=== PATIENT | male | born 1980 | race Caucasian/White ===

== ENCOUNTER 2016-12-01 16:14 | Emergency (ER) | payer SELFPAY ==
[~2016-12-01] VITALS: Ht 172.7 cm; Wt 75.0 kg
[~2016-12-01 16:14] MED LIST: PHEN100 PO
[2016-12-01 16:16] VITALS: BP 135/92; PULSE 109; RESP 12; TEMP 97.8; O2SAT 99
[2016-12-01 19:19] VITALS: BP 127/62; PULSE 85; RESP 16; TEMP 98.1; O2SAT 99
== END 2016-12-01 19:40 | disposition left against medical advice (07) ==
LOC: NED 16:14
DX: Z53.21 Procedure and treatment not carried out due to patient leaving prior to being seen by health care provider (principal)
CPT/HCPCS: 99281

== ENCOUNTER 2017-09-12 21:51 | Emergency (ER) | payer SELFPAY ==
[~2017-09-12] VITALS: Ht 172.7 cm; Wt 68.2 kg
[2017-09-12 21:54] VITALS: BP 172/80; PULSE 121; RESP 16; TEMP 98.4; O2SAT 98
[2017-09-12] MEDS ORDERED: DILA100C PO (22:04)
[2017-09-12] MEDS ORDERED: DICL75TA PO (22:13)
--- NOTE | 2017-09-12 22:17 | PD ---
HPI Chief Complaint: Injury Time Seen by Provider: 22:07 Travel History International Travel<30 days: No Contact w/Intl Traveler<30days: No Traveled to known affect area: No History of Present Illness HPI 37-year-old white male presents to emergency Department with complaints of left foot and ankle pain 2 days. He states that yesterday he noticed some mild discomfort in his forefoot. He does note that he went for a very long bicycle ride and had a lot of walking yesterday which may have precipitated the event. He denies any direct trauma. No history of prior injury. He states the pain now is severe today and is unable to walk. He denies any sensory changes. Exacerbated by walking or riding a bike. No alleviating factors. PFSH Past Medical History Narrative Medical Seizure disorder Cardiovascular Problems: Yes (MURMUR) Medical other: Yes (SEIZURES ) Tetanus Vaccination: > 5 Years Influenza Vaccination: No Past Surgical History Surgical History: No Previous Surgery Social History Alcohol Use: Yes (OCC) Tobacco Use: Yes (10/25 PPD) Substance Use: Yes (MJ) Allergies-Medications (Allergen,Severity, Reaction): Coded Allergies: ketorolac (Verified Allergy, Severe, 09/12/17) HIVES; N/V tramadol (Verified Allergy, Severe, 09/12/17) HIVES N/V penicillin G (Verified Allergy, Unknown, 09/12/17) Reported Meds & Prescriptions Reported Meds & Active Scripts Active Diclofenac Sodium DR (Diclofenac Sodium) 75 Mg Tabdr 75 Mg PO BID Dilantin 100 Mg Kapseals (Phenytoin Sodium) 100 Mg Caper 100 Mg PO TID 30 Days Reported Dilantin (Phenytoin Extended) 100 Mg Cap 100 Mg PO TID Review of Systems Except as stated in HPI: all other systems reviewed are Neg Physical Exam Narrative GENERAL: This is a well-nourished, well-developed patient, in no apparent distress. SKIN: No rashes, ecchymoses or lesions. Warm and dry. HEAD: Atraumatic. Normocephalic. EYES: PERRL, EOMI, no discharge or injection. No scleral icterus. EARS: Clear NOSE: Nasal turbinates appear normal. THROAT: Mucosa pink and moist. Airway patent. NECK: Trachea midline. supple, moves head freely. LUNGS: Clear to auscultation. CV: Regular in rhythm. ABDOMEN: Soft nontender. EXT: No clubbing cyanosis or edema. Examination of the left foot reveals tenderness in the proximal forefoot up into the ankle. There is no bony tenderness in the ankle. No pain in the heel or Achilles. He complains of pain with light palpation of the talar fibular talar tibial ligaments. He has intact sensation with good distal pulses. Minimal swelling. The skin is intact. No pain in the distal forefoot or toes. No pain in the heel, Achilles , knee or hip. Remaining extremities are unremarkable. Data Data Last Documented VS Vital Signs Date Time Temp Pulse Resp B/P (MAP) Pulse Ox O2 Delivery O2 Flow Rate FiO2 09/12/17 21:54 98.4 121 16 172/80 (110) 98 Orders Orders Foot, Complete ([id number]) (09/12/17 22:12) Ice/Cold Pack (09/12/17 22:12) Splint Or Brace Apply/Monitor (09/12/17 22:12) Crutches (09/12/17 22:12) Naproxen (Naprosyn) (09/12/17 22:30) Ed Discharge Order (09/12/17 22:33) MDM Medical Decision Making Medical Screen Exam Complete: Yes Emergency Medical Condition: Yes Medical Record Reviewed: Yes Interpretation(s) Left foot: Negative for acute bony injury. Differential Diagnosis MDM: High Differential diagnoses: Fracture, sprain, strain, dislocation, contusion, neurovascular injury Narrative Course X-rays of left foot are negative or bony injury. Patient's given Chaka wrap and crutches. Icepack applied. Diclofenac for pain. Patient's given Naprosyn 500 mg by mouth here. Patient states that he is allergic to Toradol and tramadol. But he can take Tylenol and ibuprofen. Diagnosis Primary Impression: Tendinitis of left foot Patient Instructions: General Instructions Additional Instructions: Rest. Elevation. Ice packs for the next 3 days. Chaka wrap and crutches. No weight-bearing and then progress to weight-bearing as tolerated. Medications as directed Follow-up with an orthopedist, banquet manager for a family doctor in one week. Return to the ER if any problems Med/Other Pt SpecificInfo: Prescription(s) given Scripts Diclofenac Sodium (Diclofenac Sodium DR) 75 Mg Tabdr 75 MG PO BID, #20 TAB 0 Refills Prov: Vinny Morelos MD 09/12/17 Disposition: 01 DISCHARGE HOME Condition: Stable Alfonso Herr Sep 12, 2017 22:17
[2017-09-12] MEDS ORDERED: NAPROXEN 500 MG TAB PO ONE (22:30)
--- NOTE | 2017-09-12 22:57 | RADRPT ---
EXAM DATE/TIME: 09/12/2017 22:19 [facility] COMPARISON: No previous studies available for comparison. INDICATIONS : Left foot pain, denies injury MEDICAL HISTORY : None. SURGICAL HISTORY : None. ENCOUNTER: Initial ACUITY: 2 days PAIN SCORE: 10/10 LOCATION: Left Foot FINDINGS: Bone density is normal. The osseous structures are in normal alignment. No evidence of acute fractu re. There is a lucency at the anterior proximal angle of the scaphoid with sclerosis about the lucen cy suggesting an old injury. No significant soft tissue swelling seen. No radiopaque foreign bodies . CONCLUSION: No acute findings. Old injury proximal dorsal angle of the scaphoid. Dick Schultz MD on September 12, 2017 at 22:54 Board Certified Radiologist. This report was verified electronically.
== END 2017-09-12 23:27 | disposition home or self-care (01) ==
LOC: NEPK 21:51
DX: M76.9 Unspecified enthesopathy, lower limb, excluding foot (principal); G40.909 Epilepsy, unspecified, not intractable, without status epilepticus; R01.1 Cardiac murmur, unspecified; F17.200 Nicotine dependence, unspecified, uncomplicated; Z79.899 Other long term (current) drug therapy; Z88.0 Allergy status to penicillin; Z88.8 Allergy status to other drugs, medicaments and biological substances; Z88.5 Allergy status to narcotic agent
CPT/HCPCS: 73630; 99283; E0113

== ENCOUNTER 2018-02-17 01:45 | Emergency (ER) | payer SELFPAY ==
[~2018-02-17] VITALS: Ht 170.2 cm; Wt 69.5 kg
[~2018-02-17 01:45] MED LIST changes: +DICL75TA PO; +DILA100C PO
[2018-02-17 02:17] VITALS: BP 108/61; PULSE 120; RESP 24; TEMP 99.7; O2SAT 100
[2018-02-17 02:26] VITALS: BP 123/79; PULSE 122; RESP 20; O2SAT 100
[2018-02-17 03:06] LABS: AUTOMATED NEUTROPHIL # 7.8 TH/MM3 (1.8-7.7); BASOPHIL # 0.1 TH/MM3 (0-0.2); BASOPHIL % 0.9 % (0.0-2.0); BILIRUBIN, URINE NEG (NEG); BLOOD, URINE NEG (NEG); EOSINOPHIL # 0.1 TH/MM3 (0-0.4); EOSINOPHIL % 0.8 % (0.0-4.0); GLUCOSE,URINE NEG (NEG); HEMATOCRIT 31.1 % (39.0-51.0); HEMOGLOBIN 10.3 GM/DL (13.0-17.0); KETONE, URINE NEG (NEG); LYMPH % 14.5 % (9.0-44.0); LYMPHOCYTE # 1.5 TH/MM3 (1.0-4.8); MEAN CORPUSCULAR HEMOGLOBIN 24.8 PG (27.0-34.0); MEAN CORPUSCULAR HGB CONC 33.1 % (32.0-36.0); MEAN PLATELET VOLUME 7.2 FL (7.0-11.0); MONO % 6.9 % (0.0-8.0); MONOCYTE # 0.7 TH/MM3 (0-0.9); MUCUS URINE FEW /lpf (OCC); NEUT % 76.9 % (16.0-70.0); NITRITE,URINE NEG (NEG); PH, URINE 5.5 (5.0-8.5); PLATELET COUNT 244 TH/MM3 (150-450); RED BLOOD COUNT 4.14 MIL/MM3 (4.50-5.90); RED CELL DISTRIBUTION WIDTH 16.4 % (11.6-17.2); URINE COLOR YELLOW (YELLW/STRAW); URINE LEUKOCYTE ESTERASE NEG (NEG); WHITE BLOOD COUNT 10.1 TH/MM3 (4.0-11.0)
[2018-02-17] MEDS ORDERED: KETOROLAC TROMETHAMINE 60 MG/2 ML (IM) VIAL IM ONE (03:15)
--- NOTE | 2018-02-17 03:15 | PD ---
HPI . Back pain Chief Complaint: Back/ Neck Pain or Injury Time Seen by Provider: 02:38 Travel History International Travel<30 days: No Contact w/Intl Traveler<30days: No Traveled to known affect area: No History of Present Illness HPI pt has 2 days left sided back pain that radiates to the left side and up to his shoulder as well and he denies dysuria no constipation , no vomit , I come into the Exam room and he is leaning forward in a stool onto bed to alleviate the pain , this position help the back pain , No fever no associated symptoms . he took nothing for the pain PFSH Past Medical History Medical History: Denies Significant Hx Cardiovascular Problems: Yes (MURMUR) Past Surgical History Surgical History: No Previous Surgery Social History Alcohol Use: Yes (OCC) Tobacco Use: Yes (1PPD) Substance Use: No Allergies-Medications (Allergen,Severity, Reaction): Coded Allergies: ketorolac (Verified Allergy, Severe, 09/12/17) HIVES; N/V tramadol (Verified Allergy, Severe, 09/12/17) HIVES N/V penicillin G (Verified Allergy, Unknown, 09/12/17) Reported Meds & Prescriptions Reported Meds & Active Scripts Active Ibuprofen 600 Mg Tab 600 Mg PO Q6H PRN Valium (Diazepam) 5 Mg Tab 5 Mg PO TID PRN Diclofenac Sodium DR (Diclofenac Sodium) 75 Mg Tabdr 75 Mg PO BID Dilantin 100 Mg Kapseals (Phenytoin Sodium) 100 Mg Caper 100 Mg PO TID 30 Days Reported Dilantin (Phenytoin Extended) 100 Mg Cap 100 Mg PO TID Review of Systems Except as stated in HPI: all other systems reviewed are Neg Physical Exam Narrative GENERAL: pt has back pain leaning over bed to alleviate pain SKIN: Warm and dry. HEAD: Atraumatic. Normocephalic. EYES: Pupils equal and round. No scleral icterus. No injection or drainage. ENT: No nasal bleeding or discharge. Mucous membranes pink and moist. NECK: Trachea midline. No JVD. CARDIOVASCULAR: Regular rate and rhythm. RESPIRATORY: No accessory muscle use. Clear to auscultation. Breath sounds equal bilaterally. GASTROINTESTINAL: Abdomen soft, non-tender, nondistended. Hepatic and splenic margins not palpable. MUSCULOSKELETAL: Extremities without clubbing, cyanosis, or edema. No obvious deformities. BACK lumbral and left parathoracic and lumbral pain NEUROLOGICAL: Awake and alert. No obvious cranial nerve deficits. Motor grossly within normal limits. Five out of 5 muscle strength in the arms and legs. Normal speech. PSYCHIATRIC: Appropriate mood and affect; insight and judgment normal. Data Data Last Documented VS Orders Orders Urinalysis - C+S If Indicated (02/17/18 02:40) Complete Blood Count With Diff (02/17/18 02:40) Comprehensive Metabolic Panel (02/17/18 02:40) Ketorolac Inj (Toradol Inj) (02/17/18 03:15) Diazepam (Valium) (02/17/18 03:30) Labs Laboratory Tests Test 02/17/18 02:40 White Blood Count 10.1 TH/MM3 Red Blood Count 4.14 MIL/MM3 Hemoglobin 10.3 GM/DL Hematocrit 31.1 % Mean Corpuscular Volume 75.0 FL Mean Corpuscular Hemoglobin 24.8 PG Mean Corpuscular Hemoglobin Concent 33.1 % Red Cell Distribution Width 16.4 % Platelet Count 244 TH/MM3 Mean Platelet Volume 7.2 FL Neutrophils (%) (Auto) 76.9 % Lymphocytes (%) (Auto) 14.5 % Monocytes (%) (Auto) 6.9 % Eosinophils (%) (Auto) 0.8 % Basophils (%) (Auto) 0.9 % Neutrophils # (Auto) 7.8 TH/MM3 Lymphocytes # (Auto) 1.5 TH/MM3 Monocytes # (Auto) 0.7 TH/MM3 Eosinophils # (Auto) 0.1 TH/MM3 Basophils # (Auto) 0.1 TH/MM3 CBC Comment DIFF FINAL Differential Comment Urine Color YELLOW Urine Turbidity CLEAR Urine pH 5.5 Urine Specific [place] 1.018 Urine Protein TRACE mg/dL Urine Glucose (UA) NEG mg/dL Urine Ketones NEG mg/dL Urine Occult Blood NEG Urine Nitrite NEG Urine Bilirubin NEG Urine Urobilinogen LESS THAN 2.0 MG/DL Urine Leukocyte Esterase NEG Urine RBC LESS THAN 1 /hpf Urine WBC 1 /hpf Urine Mucus FEW /lpf Microscopic Urinalysis Comment CULT NOT INDICATED Blood Urea Nitrogen 6 MG/DL Creatinine 0.85 MG/DL Random Glucose 83 MG/DL Total Protein 8.7 GM/DL Albumin 2.7 GM/DL Calcium Level 8.5 MG/DL Alkaline Phosphatase 85 U/L Aspartate Amino Transf (AST/SGOT) 46 U/L Alanine Aminotransferase (ALT/SGPT) 27 U/L Total Bilirubin 0.4 MG/DL Sodium Level 133 MEQ/L Potassium Level 4.3 MEQ/L Chloride Level 98 MEQ/L Carbon Dioxide Level 25.4 MEQ/L Anion Gap 10 MEQ/L Estimat Glomerular Filtration Rate 103 ML/MIN [facility] Medical Decision Making Medical Screen Exam Complete: Yes Emergency Medical Condition: Yes Differential Diagnosis Differential diagnosis includes renal colic with kidney stone obstructing versus pyelonephritis versus muscle spasm radiculopathy versus sciatica versus trauma versus rib fracture versus other Narrative Course Patient is given Toradol 60 IM and 5 p.o. Valium he sleeps feels much better his back muscles have relaxed urine is negative for red blood cells his labs chemistry as well as CBC non-specific findings no indication for further evaluation diagnosis is muscle spasm back. Disposition is discharged home with ibuprofen and Valium for the next 3 days Diagnosis Primary Impression: Sciatica Qualified Codes: M54.32 - Sciatica, left side Additional Impressions: Back muscle spasm Spasm of muscle of lower back Scripts Ibuprofen (Ibuprofen) 600 Mg Tab 600 MG PO Q6H Y for Pain/Inflammation, #40 TAB 0 Refills Prov: Juan Goodman MD 02/17/18 Diazepam (Valium) 5 Mg Tab 5 MG PO TID Y for MUSCLE SPASM, #12 TAB 0 Refills Prov: Juan Goodman MD 02/17/18 Disposition: 01 DISCHARGE HOME Condition: Good Juan Goodman MD Feb 17, 2018 03:15
[2018-02-17 03:29] LABS: ALKALINE PHOSPHATASE 85 U/L (45-117); TOTAL BILIRUBIN ADULT 0.4 MG/DL (0.2-1.0); TOTAL PROTEIN 8.7 GM/DL (6.4-8.2)
[2018-02-17] MEDS ORDERED: DIAZEPAM 5 MG TAB PO ONE (03:30)
[2018-02-17 03:33] LABS: ALBUMIN 2.7 GM/DL (3.4-5.0); ALT (GPT) 27 U/L (12-78); AST (GOT) 46 U/L (15-37); BICARBONATE 25.4 MEQ/L (21.0-32.0); BLOOD UREA NITROGEN 6 MG/DL (7-18); CALCIUM 8.5 MG/DL (8.5-10.1); CHLORIDE 98 MEQ/L (98-107); CREATININE 0.85 MG/DL (0.60-1.30); GLOMERULAR FILTRATION RATE 103 ML/MIN (>89); GLUCOSE,RANDOM 83 MG/DL (74-106); SODIUM (NA) 133 MEQ/L (136-145)
[2018-02-17] MEDS ORDERED: DIAZ5 PO (05:54)
[2018-02-17] MEDS ORDERED: IBUP-232 PO (05:54)
[2018-02-17 06:01] VITALS: BP 114/68; PULSE 88; RESP 16; O2SAT 100
== END 2018-02-17 06:02 | disposition home or self-care (01) ==
LOC: NEPE 01:45
DX: M54.32 Sciatica, left side (principal); M62.830 Muscle spasm of back; F17.200 Nicotine dependence, unspecified, uncomplicated
CPT/HCPCS: 80053; 81001; 85025; 96372; 99283; J1885